=== PATIENT | female | born 1965 | race Caucasian/White ===

== ENCOUNTER → 2022-04-27 | Outpatient (CLI) | payer BC | LOC: M RAD 13:33 | PROVIDERS: ATTEND Registered Nurse | DX: R22.1 Localized swelling, mass and lump, neck (principal); M54.2 Cervicalgia ==

== ENCOUNTER → 2023-06-24 | Outpatient (CLI) | payer BC | LOC: M SOG 10:12 | PROVIDERS: ATTEND Orthopaedic Surgery | DX: M54.2 Cervicalgia (principal) ==

== ENCOUNTER → 2023-08-18 | Outpatient (CLI) | payer BC | LOC: M RAD 12:28 | PROVIDERS: ATTEND Pain Medicine Interventional Pain Medicine | DX: M54.12 Radiculopathy, cervical region (principal); M47.892 Other spondylosis, cervical region ==

== ENCOUNTER → 2024-08-22 | Outpatient (CLI) | payer BC | LOC: M WHC 13:35 | PROVIDERS: ATTEND Obstetrics & Gynecology | DX: Z12.31 Encounter for screening mammogram for malignant neoplasm of breast (principal) ==

== ENCOUNTER → 2025-06-24 | Outpatient (CLI) | payer BC ==
[~2025-06-24] MED LIST: FLUT1BLS5; LEVO25TA5; PANT40TA29; TIRZ7.5P
== END ==
LOC: M RAD 07:59
PROVIDERS: ATTEND Internal Medicine Medical Oncology
DX: D75.1 Secondary polycythemia (principal)

== ENCOUNTER → 2025-07-26 | Outpatient (CLI) | payer BC ==
[~2025-07-26] MED LIST changes: +PROHANCE 279.3MG/ML 15ML VIAL ONE
== END ==
LOC: M PLAIMG 10:05
PROVIDERS: ATTEND Nurse Practitioner Family
DX: M51.361 Other intervertebral disc degeneration, lumbar region with lower extremity pain only (principal); R10.20 Pelvic and perineal pain unspecified side; M47.816 Spondylosis without myelopathy or radiculopathy, lumbar region; N85.8 Other specified noninflammatory disorders of uterus
CPT/HCPCS: 72148; 72197; A9576